=== PATIENT | female | born 1950 | race Hispanic/Latino ===

== ENCOUNTER 2020-01-04 10:10 | Outpatient (CLI) | payer MEDICARE ==
--- NOTE | 2020-01-04 14:52 | Mammography Report ---
DIGITAL SCREENING MAMMOGRAM WITH CAD, 01/04/2020 INDICATION: Routine screening mammography. Please note that although the patient was scheduled to hav e a screening mammogram, she reports a lump in the left breast for approximately one week. A diagnost ic evaluation was not able to be completed at the time of her visit due to time constraints and needi ng to obtain a corrected study order. TECHNIQUE: Digital bilateral 2D mammography was obtained in the craniocaudal and mediolateral obliq ue projections. This examination was interpreted with the benefit of Computer-Aided Detection analysi s. COMPARISON: 04/08/2015 FINDINGS: Breast Density: The breasts are extremely dense, which lowers the sensitivity of mammography. There is no evidence of dominant mass, suspicious calcifications or architectural distortion in the r ight breast. There is a new round lobulated mass measuring 1.3 cm and the left breast at the 2:00 pos ition middle depth. It is unclear if this corresponds to the patient's area of new probable concern. IMPRESSION: Follow up recommendation: Ultrasound. Please note that patient reports a lump in the left breast alth ough she was scheduled for a screening mammogram. Therefore, the patient will need to return for rupali tional spot compression views of the left breast and ultrasound. Additional evaluation is also recomm ended for the new left breast mass as described above. It is unclear if this represents the patient's area of palpable concern. BI-RADS Category 0: Incomplete. Needs additional imaging evaluation and/or prior mammograms for heaven rison. A "normal" or negative report should not discourage follow up or biopsy of a clinically significant f inding. A written summary of these findings will be mailed to the patient. The patient will be entered into a mammography reporting system which will generate a reminder letter for the patient's next appointmen t at the appropriate interval. The [employer] recommends yearly mammograms starting at age 40 and continuing as l home as a woman is in good health. Breast MRI is recommended for women with an approximate 20-25% or greater lifetime risk of breast cancer, including women with a strong family history of breast or ova bonita cancer or who have been treated for Hodgkin's disease. Signer Name: Mary Roman MD Signed: 01/04/2020 2:47 PM Workstation Name: [id number]
== END 2020-01-04 10:11 | disposition home or self-care (01) ==
LOC: SPVWC 10:10
PROVIDERS: ATTEND Family Medicine
DX: Z12.31 Encounter for screening mammogram for malignant neoplasm of breast (principal); N64.89 Other specified disorders of breast
CPT/HCPCS: 77067

== ENCOUNTER 2020-01-23 09:15 | Outpatient (CLI) | payer MEDICARE ==
--- NOTE | 2020-01-23 11:43 | Mammography Report ---
LEFT DIGITAL DIAGNOSTIC MAMMOGRAM WITH CAD CONVENTIONAL, 01/23/2020 LEFT LIMITED BREAST ULTRASOUND CLINICAL INFORMATION / INDICATION: Patient presents as a callback from screening mammogram for furthe r evaluation of a mass in the left breast, corresponding with a site of palpable concern. Palpable melva mp TECHNIQUE: Digital left mammographic imaging was performed. Spot compression views were obtained. Kim ited ultrasound was performed. This examination was interpreted with the benefit of Computer-Aided De tection (CAD) analysis. COMPARISON: Prior mammogram 01/04/2020 FINDINGS: Breast Density: The breasts are heterogeneously dense, which may obscure small masses. MAMMOGRAPHIC FINDINGS: As seen on recent screening mammogram, there is a 1.5 cm round lobulated mass corresponding with the site of palpable concern in the 3:00 position of the left breast located 6 cm from the nipple. Targeted ultrasound performed for further evaluation. ULTRASOUND FINDINGS: Targeted ultrasound evaluation was performed of the area of interest. Targeted ultrasound of the area of palpable concern in the left breast 3:00 position located 6 cm from the ni pple reveals an oval mass with predominantly circumscribed but partially irregular margins measuring up to 1.6 x 1.0 x 1.2 cm. A focus of internal vascularity is demonstrated. Incidental note is made of an additional complicated cyst versus hypoechoic nodule in the 2:00 position located 5 cm from the n ipple measuring up to 4 mm, and heterogeneous hypoechoic tissue without discrete mass in the 2:00 pos ition located 4 cm from the nipple. A few morphologically normal lymph nodes are seen in the left axi lla. No pathologically enlarged lymph nodes identified. IMPRESSION: 1. A lobulated hypoechoic mass accounts for the area of palpable concern in the left breast. This is considered suspicious for malignancy, ultrasound-guided biopsy is recommended. 2. There is an incidental complicated cyst versus hypoechoic nodule in the 2:00 left breast, and rupali tional heterogeneous hypoechoic tissue without discrete mass in the 2:00 left breast. If the above bi opsy proves to be malignant, then an MRI is recommended to better characterize these additional areas . Follow up recommendation: Biopsy BI-RADS Category 4: Suspicious for Malignancy. A "normal" or negative report should not discourage follow up or biopsy of a clinically significant f inding. A written summary of these findings will be mailed to the patient. The patient will be entered into a mammography reporting system which will generate a reminder letter for the patient's next appointmen t at the appropriate interval. According to the [employer], yearly mammograms are recommended starting at age 40 and continuing as long as a woman is in good health. Breast MRI is recommended for women with an segundo roximately 20-25% or greater lifetime risk of breast cancer, including women with a strong family his tory of breast or ovarian cancer and women who have been treated for Hodgkin's disease. Signer Name: Holly Padilla MD Signed: 01/23/2020 11:38 AM Workstation Name: [id number]
== END 2020-01-23 09:16 | disposition home or self-care (01) ==
LOC: SPVWC 09:15
PROVIDERS: ATTEND Family Medicine
DX: N63.21 Unspecified lump in the left breast, upper outer quadrant (principal)

== ENCOUNTER 2020-02-02 11:02 | Outpatient (CLI) | payer MEDICARE ==
--- NOTE | 2020-02-02 12:51 | Mammography Report ---
ULTRASOUND GUIDED LEFT BREAST BIOPSY, 02/02/2020 DIAGNOSTIC MAMMOGRAM OF THE LEFT BREAST CLINICAL INFORMATION / INDICATION: History of left breast nodule near the 3:00 position, here for bio psy. Patchy COMPARISON: Mammogram and ultrasound from 01/23/2020 PROCEDURE: Risks, benefits, and indications to the procedure were discussed with the patient in detail, includin g bleeding, infection, hematoma formation, and inadequate tissue sampling. The patient agreed to proc eed with both verbal and written consent. A timeout procedure was performed with two patient identifi ers. The breast was prepped and draped in the usual sterile fashion. Lidocaine 1% was used for local anest hesia. Under direct ultrasound guidance, 3 separate 14-gauge core samples were obtained of the left b reast. A biopsy marker was then placed. Biopsy device was removed and hemostasis achieved with manua l pressure. A sterile dressing was applied to the skin. The patient tolerated the procedures well without difficulty. No complications were encountered. Postbiopsy instructions were discussed with the patient and given in writing. Specimens were sent to pathology. IMPRESSION: 1. Technically successful ultrasound guided left breast biopsy. 2. Satisfactory clip placement within the left breast. Biopsy results are pending and will be reported in an addendum. Signer Name: Abdiel Dennis MD Signed: 02/02/2020 12:47 PM Workstation Name: [id number]
== END 2020-02-02 11:03 | disposition home or self-care (01) ==
LOC: US 11:02
PROVIDERS: ATTEND Family Medicine
DX: N63.23 Unspecified lump in the left breast, lower outer quadrant (principal); R92.8 Other abnormal and inconclusive findings on diagnostic imaging of breast; C50.512 Malignant neoplasm of lower-outer quadrant of left female breast; Z17.0 Estrogen receptor positive status [ER+]
CPT/HCPCS: 88305; 88341; 88342